=== PATIENT | male | born 1970 | race African-American/Black ===

== ENCOUNTER 2017-01-10 23:50 | Inpatient (IN) | payer BC ==
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
--- NOTE | ~2017-01-10 | CN ---
Consultation Report [facility] [address] [place]. [address] NAME: FLAKITA SPENCE : 72 STATUS : ADM IN PAT#: [id number] AGE: 46 ADM/REG DATE : 01/11/17 MR#: [id number] REPORT SERV DATE: 01/15/17 DICTATED BY: SAM TANNER DATE: 01/15/17 REPORT STATUS : Draft TRANSCRIBED BY: MODFlor DATE: 01/15/17 PSYCHIATRIC CONSULTATION DATE OF CONSULTATION: 01/15/2017 I reviewed this patient's current and old medical record. I discussed his status with Dr. Holley. HISTORY OF PRESENT ILLNESS: He was admitted because he said he was unable to care for himself, especially for his left calf ulceration and other skin issues. I was consulted because of keeping his head covered while he is in the bed and his history of schizophrenia. PAST PSYCHIATRIC HISTORY: I previously saw him in consultation on 06/27/2015, when he was admitted with a decubitus, anasarca, and UTI. At that time, he told me he had multiple admissions to [facility] with a diagnosis of schizophrenia. He was being followed at [facility] where he was prescribed Invega 6 mg daily. Since that time, he stopped attending [facility], [facility] and he discontinued all psychotropic medications. He has a more remote history of polysubstance abuse. SOCIAL HISTORY: In the past, he was homeless. More recently, he has been staying with his sister. MENTAL STATUS: He uncovered his head when requested to do so. He re-covered it as I was leaving the room. His mood was euthymic. His affect was flat and somewhat inappropriate. His thinking was logical but impoverished. He had no delusions. He had no hallucinations. He was oriented to time, place, and person. DIAGNOSIS: Schizophrenia, undifferentiated. RECOMMENDATIONS: I recommended to him that he should return to [facility], but he declined saying "I am doing fine. I do not need that medication." He can be discharged to home or to other placement when medically cleared. I will sign off. CHRISTIANO/TERELL Sam Tanner M.D. / [id number] CC: Jayla Holley M.D. NO PCP
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
[~2017-01-10 23:50] MED LIST: *DENIES; CEFT5 PO; CIP5 PO; DENIES HOME MEDS; INVEGA6 MG PO; LEVAQUIN750 MG PO; PERCOCET1 TA4 PO
[2017-01-11 00:50] LABS: BASOPHILS 0.1 %; BASOPHILS ABSOLUTE 0.01 10/3/uL (0.0-0.16); EOSINOPHILS 0.9 %; EOSINOPHILS ABSOLUTE 0.06 10/3/uL (0.0-0.53); IMMATURE GRANULOCYTES 0.1 %; IMMATURE GRANULOCYTES ABSOLUTE 0.01 10/3/uL (0.0-0.11); LYMPHOCYTES 11.3 %; LYMPHOCYTES ABSOLUTE 0.79 10/3/uL (0.67-4.30); MEAN CORPUSCULAR HEMOGLOB 30.1 pg (26.0-34.0); MEAN PLATELET VOLUME 9.8 fL (9.2-13.0); MONOCYTES 6.6 %; MONOCYTES ABSOLUTE 0.46 10/3/uL (0.21-1.20); NEUTROPHILS ABSOLUTE 5.66 10/3/uL (2.02-8.40); RBC DISTRIBUTION WIDTH 15.7 % (12.0-16.0); RED CELL COUNT 4.02 10/6/uL (4.7-6.1)
[2017-01-11 00:51] LABS: HEMATOCRIT 35.6 % (40.0-51.0); HEMOGLOBIN 12.1 g/dL (13.6-17.8); MANUAL DIFF NO %; MEAN CORPUSCULAR VOLUME 88.6 fL (80-100); PLATELET COUNT 180 10/3/uL (150-400)
[2017-01-11 01:01] LABS: ASCORBIC ACID (UR NOT ORDER) NEG (NEG); BILIRUBIN, URINE NEGATIVE (NEG); ER URINALYSIS TAT 0 Hrs 00 Mins; KETONE, URINE 20 MG/DL (NEG); LEUKOCYTE ESTERASE(NOT OR NEG (NEG); NITRITE (URINE) NEG (NEG); WBC (NOT ORDERED) (RFLEX) 4 (0-5)
[2017-01-11 01:05] LABS: CALCIUM, SERUM 8.9 MG/DL (8.5-10.4); CHLORIDE, SERUM 102 MMOL/L (96-112); CO2 (CARBON DIOXIDE) 27 MMOL/L (24-34); CREATININE 0.78 MG/DL (0.70-1.30); GFR AFRICAN AMERICAN 126 ML/MIN (>=60); GFR NON AFRICAN AMERICAN 109 ML/MIN (>=60); GLUCOSE, SERUM 84 MG/DL (60-99); POTASSIUM, SERUM 3.8 MMOL/L (3.5-5.3); SGOT(AST) 33 U/L (5-40); SGPT(ALT) 24 U/L (5-65); SODIUM, SERUM 139 MMOL/L (135-148); TOTAL BILIRUBIN 0.6 MG/DL (0-1.2)
[2017-01-11 01:06] LABS: INTERNATIONAL NORMAL RATI 1.1 UNITS (-); PROTIME (NOT ORD) 14.2 SEC (12.0-14.5)
[2017-01-11 01:07] LABS: A/G RATIO 0.8 (0.7-1.9); ALBUMIN 3.9 G/DL (3.5-5.0); ALKALINE PHOSPHATASE 124 U/L (45-117); BUN (BLOOD UREA NITROGEN) 21 MG/DL (6-23); GLOBULIN 5.2 G/DL (2.5-4.1); LACTATE 2.2 MMOL/L (0.3-2.4); PARTIAL THROMBO TIME 33.1 SEC (22.5-37.2); TOTAL PROTEIN 9.1 G/DL (6.0-8.5)
[2017-01-11 01:08] LABS: ACETAMINOPHEN LEVEL (TYLENOL) < 2.0 MCG/ML (10.0-20.0); ALCOHOL < 10 MG/DL (0); SALICYLATE < 1.7 MG/DL (-)
[2017-01-11 01:28] LABS: AMPHETAMINES (NOT ORD) NEG (NEG); BARBITURATES (NOT ORDERED NEG (NEG); BENZODIAZEPINES (NOT ORD) NEG (NEG); CANNABINOIDS (THC) NEG (NEG); COCAINE (NOT ORDERED) NEG (NEG); OPIATES NEG (NEG); PHENCYCLIDINE(PCP) NEG (NEG); TRICYCLICS NEG (NEG)
[2017-01-11 02:00] LABS: PROCALCITONIN <0.05 ng/mL (<0.5)
[2017-01-12 06:31] LABS: BASOPHILS 0 %; EOSINOPHILS 1.1 %; EOSINOPHILS ABSOLUTE 0.04 10/3/uL (0.0-0.53); IMMATURE GRANULOCYTES 0.3 %; IMMATURE GRANULOCYTES ABSOLUTE 0.01 10/3/uL (0.0-0.11); LYMPHOCYTES 22.5 %; LYMPHOCYTES ABSOLUTE 0.82 10/3/uL (0.67-4.30); MEAN CORPUSCULAR HEMOGLOB 29.6 pg (26.0-34.0); MEAN CORPUSCULAR VOLUME 89.6 fL (80-100); MEAN PLATELET VOLUME 10.1 fL (9.2-13.0); MONOCYTES 12.1 %; MONOCYTES ABSOLUTE 0.44 10/3/uL (0.21-1.20); NEUTROPHILS ABSOLUTE 2.33 10/3/uL (2.02-8.40); PLATELET COUNT 142 10/3/uL (150-400); RED CELL COUNT 3.38 10/6/uL (4.7-6.1)
[2017-01-12 06:32] LABS: HEMATOCRIT 30.3 % (40.0-51.0); MANUAL DIFF NO %; WHITE BLOOD CELLS 3.6 10/3/uL (4.5-10.5)
[2017-01-12 06:39] LABS: INTERNATIONAL NORMAL RATI 1.2 UNITS (-); PARTIAL THROMBO TIME 35.8 SEC (22.5-37.2); PROTIME (NOT ORD) 14.6 SEC (12.0-14.5)
[2017-01-12 06:56] LABS: CALCIUM, SERUM 8.2 MG/DL (8.5-10.4); CHLORIDE, SERUM 106 MMOL/L (96-112); CO2 (CARBON DIOXIDE) 27 MMOL/L (24-34); CREATININE 0.66 MG/DL (0.70-1.30); GFR AFRICAN AMERICAN 135 ML/MIN (>=60); GFR NON AFRICAN AMERICAN 117 ML/MIN (>=60); POTASSIUM, SERUM 3.4 MMOL/L (3.5-5.3); SGOT(AST) 20 U/L (5-40); SGPT(ALT) 14 U/L (5-65); SODIUM, SERUM 142 MMOL/L (135-148); TOTAL BILIRUBIN 0.7 MG/DL (0-1.2)
[2017-01-12 06:57] LABS: A/G RATIO 0.7 (0.7-1.9); ALBUMIN 2.7 G/DL (3.5-5.0); ALKALINE PHOSPHATASE 83 U/L (45-117); BUN (BLOOD UREA NITROGEN) 11 MG/DL (6-23); GLOBULIN 4.1 G/DL (2.5-4.1); GLUCOSE, SERUM 108 MG/DL (60-99); TOTAL PROTEIN 6.8 G/DL (6.0-8.5); ULTRASENSITIVE TSH 0.189 MCIU/ML (0.358-3.740)
[2017-01-12 07:56] LABS: SED RATE 23 MM/HR (0-15)
[2017-01-13 06:39] LABS: BUN (BLOOD UREA NITROGEN) 11 MG/DL (6-23); CALCIUM, SERUM 8.8 MG/DL (8.5-10.4); CHLORIDE, SERUM 105 MMOL/L (96-112); CO2 (CARBON DIOXIDE) 28 MMOL/L (24-34); CREATININE 0.59 MG/DL (0.70-1.30); GFR AFRICAN AMERICAN 142 ML/MIN (>=60); GFR NON AFRICAN AMERICAN 122 ML/MIN (>=60); POTASSIUM, SERUM 3.9 MMOL/L (3.5-5.3); SODIUM, SERUM 141 MMOL/L (135-148)
[2017-01-13 06:41] LABS: GLUCOSE, SERUM 77 MG/DL (60-99)
[2017-01-19 07:27] LABS: CPK 82 U/L (0-200); TROPONIN I <0.02 NG/ML (<0.05)
[2017-01-19 08:12] LABS: CALCIUM, SERUM 8.6 MG/DL (8.5-10.4); CHLORIDE, SERUM 107 MMOL/L (96-112); CREATININE 0.58 MG/DL (0.70-1.30); GFR AFRICAN AMERICAN 143 ML/MIN (>=60); GFR NON AFRICAN AMERICAN 123 ML/MIN (>=60); GLUCOSE, SERUM 86 MG/DL (60-99); POTASSIUM, SERUM 4.3 MMOL/L (3.5-5.3); SODIUM, SERUM 140 MMOL/L (135-148)
[2017-01-19 08:17] LABS: BUN (BLOOD UREA NITROGEN) 19 MG/DL (6-23); CO2 (CARBON DIOXIDE) 23 MMOL/L (24-34)
[2017-01-25 06:13] LABS: BASOPHILS 0.2 %; BASOPHILS ABSOLUTE 0.01 10/3/uL (0.0-0.16); EOSINOPHILS 0.8 %; EOSINOPHILS ABSOLUTE 0.04 10/3/uL (0.0-0.53); HEMOGLOBIN 11.3 g/dL (13.6-17.8); LYMPHOCYTES 27.5 %; LYMPHOCYTES ABSOLUTE 1.45 10/3/uL (0.67-4.30); MEAN CORPUS HGB CONC 32.6 g/dL (32.0-36.0); MEAN CORPUSCULAR HEMOGLOB 28.8 pg (26.0-34.0); MEAN CORPUSCULAR VOLUME 88.5 fL (80-100); MEAN PLATELET VOLUME 9.6 fL (9.2-13.0); MONOCYTES 8.9 %; MONOCYTES ABSOLUTE 0.47 10/3/uL (0.21-1.20); NEUTROPHILS 62.6 %; PLATELET COUNT 176 10/3/uL (150-400); RBC DISTRIBUTION WIDTH 15.5 % (12.0-16.0); RED CELL COUNT 3.92 10/6/uL (4.7-6.1)
[2017-01-25 06:15] LABS: HEMATOCRIT 34.7 % (40.0-51.0); MANUAL DIFF NO %; WHITE BLOOD CELLS 5.3 10/3/uL (4.5-10.5)
== END 2017-01-25 23:05 | disposition left against medical advice (07) | DRG 592 ==
LOC: ER 23:50 → 5SO 01-11 06:00
PROVIDERS: Hospitalist; Internal Medicine; Nurse Practitioner; Nurse Practitioner Family
DX: L97.221 Non-pressure chronic ulcer of left calf limited to breakdown of skin (principal); G82.54 Quadriplegia, C5-C7 incomplete; Z99.3 Dependence on wheelchair; F20.9 Schizophrenia, unspecified; Z86.718 Personal history of other venous thrombosis and embolism; Z87.440 Personal history of urinary (tract) infections; Z79.899 Other long term (current) drug therapy; Z88.5 Allergy status to narcotic agent; Z88.2 Allergy status to sulfonamides; F17.210 Nicotine dependence, cigarettes, uncomplicated; R00.1 Bradycardia, unspecified; Z83.3 Family history of diabetes mellitus
CPT/HCPCS: 71010; 73590-LT; 80048; 80053; 80305; 80307; 81001; 82550; 82553; 82962; 83605; 83735; 84145; 84439; 84443; 84484; 85025; 85610; 85652; 85730; 87040; 87070; 87205; 93005; 93970; 97110-GP; 97162-GP; 97530-GP; 99285; A9270-GY; J0692; J3370

== ENCOUNTER 2017-01-26 06:20 | Observation (INO) | payer BC ==
--- NOTE | ~2017-01-26 | DS ---
Discharge Summary [facility] [address]. [address] NAME: FLAKITA SPENCE : 72 STATUS : DIS Antonio PAT#: [id number] AGE: 46 ADM/REG DATE : 01/26/17 MR#: [id number] REPORT SERV DATE: 01/27/17 DICTATED BY: CHAI WILSON DATE: 01/26/17 REPORT STATUS : Draft TRANSCRIBED BY: TERELL DATE: 01/26/17 ADMISSION DATE: 01/26/2017 DISCHARGE DATE: 01/26/2017 Please refer to dictated discharge summary for further details of the patient's hospital course as well as leaving AMA. The patient was readmitted to the hospital by ER physician, Dr. Madison, after the patient was brought back to the [facility] ER. Please refer to H and P dictated by Dr. Shane on 01/11 as well as interim summary from Dr. Holley on 01/20 and discharge summary by Dr. Wilson for further details, and please refer to progress note dated on 01/26/2017 for further details. ALEXANDER/TERELL Chai Wilson M.D. / [id number] CC: Chai Wilson M.D.
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
[2017-01-26 06:47] LABS: BASOPHILS 0.2 %; BASOPHILS ABSOLUTE 0.01 10/3/uL (0.0-0.16); EOSINOPHILS 0.2 %; EOSINOPHILS ABSOLUTE 0.01 10/3/uL (0.0-0.53); ER CBC TAT 0 Hrs 03 Mins; HEMATOCRIT 33.5 % (40.0-51.0); HEMOGLOBIN 11.4 g/dL (13.6-17.8); IMMATURE GRANULOCYTES 0.2 %; IMMATURE GRANULOCYTES ABSOLUTE 0.01 10/3/uL (0.0-0.11); LYMPHOCYTES 22.5 %; LYMPHOCYTES ABSOLUTE 1.35 10/3/uL (0.67-4.30); MEAN CORPUSCULAR VOLUME 88.2 fL (80-100); MEAN PLATELET VOLUME 9.8 fL (9.2-13.0); MONOCYTES 8.8 %; MONOCYTES ABSOLUTE 0.53 10/3/uL (0.21-1.20); NEUTROPHILS 68.1 %; NEUTROPHILS ABSOLUTE 4.08 10/3/uL (2.02-8.40); PLATELET COUNT 175 10/3/uL (150-400); RBC DISTRIBUTION WIDTH 15.2 % (12.0-16.0)
[2017-01-26 06:49] LABS: MANUAL DIFF NO %
[2017-01-26 06:52] LABS: AMPHETAMINES (NOT ORD) NEG (NEG); BARBITURATES (NOT ORDERED NEG (NEG); BENZODIAZEPINES (NOT ORD) NEG (NEG); CANNABINOIDS (THC) NEG (NEG); COCAINE (NOT ORDERED) POS (NEG); OPIATES NEG (NEG); PHENCYCLIDINE(PCP) NEG (NEG); TRICYCLICS NEG (NEG)
[2017-01-26 07:00] LABS: BUN (BLOOD UREA NITROGEN) 20 MG/DL (6-23); CALCIUM, SERUM 8.6 MG/DL (8.5-10.4); CHLORIDE, SERUM 105 MMOL/L (96-112); CO2 (CARBON DIOXIDE) 27 MMOL/L (24-34); CREATININE 0.61 MG/DL (0.70-1.30); GFR AFRICAN AMERICAN 140 ML/MIN (>=60); GFR NON AFRICAN AMERICAN 121 ML/MIN (>=60); GLUCOSE, SERUM 94 MG/DL (60-99); POTASSIUM, SERUM 3.9 MMOL/L (3.5-5.3); SODIUM, SERUM 141 MMOL/L (135-148)
== END 2017-01-26 11:29 | disposition left against medical advice (07) ==
LOC: ER 06:20 → 5SO 08:43
PROVIDERS: Specialist
DX: F19.10 Other psychoactive substance abuse, uncomplicated (principal)
CPT/HCPCS: 80048; 80305; 85025; 93005; 99284; G0378